=== PATIENT | female | born 1955 | race Caucasian/White ===

== ENCOUNTER 2019-10-02 10:09 | Observation (INO) | payer MEDICARE, SELFPAY ==
[2019-10-02] VITALS (16 sets, daily range): BP systolic 103–142; BP diastolic 52–104; PULSE 71–82; RESP 16–24; TEMP 36.6–36.8; O2SAT 92–100; BMI 24.0
--- NOTE | ~2019-10-02 | US_ITS ---
EXAMINATION: US thoracentesis DATE: 10/03/2019 11:58 INDICATION: Left pleural effusion TECHNIQUE: The procedure and its risks and benefits were discussed with the patient. Potential risks discussed included bleeding, infection, and pneumothorax. The patient understood the risks and agreed to proceed. The skin was prepped and draped in sterile fashion. 1% lidocaine was used for local anes thesia. Under ultrasound guidance, a 5 Fr catheter with trochar was advanced into the moderate-sized left pleural effusion. Fluid was aspirated. The catheter was removed, and a dressing was applied. The re were no immediate complications. FINDINGS: Ultrasound images demonstrate a moderate-sized left pleural effusion and the catheter within the flui d. IMPRESSION: 1. Successful ultrasound-guided thoracentesis yielding 525 mL of cloudy yellowish fluid. Reviewed, dictated and finalized at location A. BURNER INSTALLER IMPRESSION: 1. Successful ultrasound-guided thoracentesis yielding 525 mL of cloudy yellow becky fluid.
--- NOTE | ~2019-10-02 | CT_ITS ---
EXAMINATION: CT chest w con EXAM DATE: 10/02/2019 13:20 INDICATION: Infiltrate. Shortness of breath. TECHNIQUE: Spiral CT of the chest following intravenous injection of 75 mL Omnipaque 350. Axial, cor onal and sagittal images were reviewed. Coronal maximum intensity pixel images of chest reviewed. Maura ashford dose-length product (DLP) for this examination was 166.38 mGy-cm. The exposure was tailored accor ding to patient size (auto mA exposure control), and iterative reconstruction (ASIR) was used as lady tional dose reduction technique. There is no prior study for comparison. Correlation was made with . FINDINGS: There is spiculated centrally hypodense left apical mass measuring 1.9 x 1.5 cm, most like ly necrotic primary lung cancer. There is left infrahilar lymphadenopathy and soft tissue insinuating into the hilum, and with left lower lobe airspace disease which has hypodense regions, likely necrot ic malignancy and postobstructive atelectasis. There is moderate-sized left pleural effusion with mi ld diffuse pleural thickening, mostly subpulmonic but also extending more cephalad, evidence of locul ations. This could be malignant pleural effusion. Approximately 1 cm nonspecific right upper lobe opacity could be scarring. Tracheobronchial tree is patent. There is no mediastinal, hilar or axillary lymphadenopathy. There is no pneumothorax. H eart normal in size. There is moderate coronary arterial calcification, arterial sclerosis. Upper abdomen is unremarkable. There is sclerotic focus in the right glenoid measuring 7 mm, could be bon e island. There is mild to moderate thoracic spondylosis. There are cholecystectomy clips. IMPRESSION: 1. Right upper lobe spiculated nodule likely primary lung cancer. 2. Infiltrative left infrahilar lymphadenopathy, left lower lobe atelectasis and necrosis, could be necrotic cancer. 3. Moderate left-sided predominant subpulmonic pleural effusion probably malignant. 4. Right glenoid sclerotic focus, most likely bone island. Attention on follow-up. 5. No central pulmonary emboli. Reviewed, dictated and finalized at location B. R CONTROL SUPERVISOR IMPRESSION: 1. Right upper lobe spiculated nodule likely primary lung cancer. 2. Infiltrative left infrahilar lymphadenopathy, left lower lobe atelectasis a nd necrosis, could be necrotic cancer. 3. Moderate left-sided predominant subpulmonic pleural effusion probably malig nant. 4. Right glenoid sclerotic focus, most likely bone island. Attention on follow -up. 5. No central pulmonary emboli.
--- NOTE | ~2019-10-02 | XR_ITS ---
EXAMINATION: XR chest 1V DATE: 10/03/2019 11:52 INDICATION: Left subpulmonic pleural effusion postthoracentesis TECHNIQUE: frontal view of the chest was obtained. COMPARISON: Chest radiograph dated 10/02/2019 FINDINGS: Decrease in size of a still small to moderate sized left pleural effusion postthoracentesis. Mild imp roved aeration in the left mid and lower lung zones with persistent airspace opacities which could re present atelectasis and/or pneumonia. Nodular opacity projecting over the anterior left first rib whi ch remain suspicious for primary bronchogenic carcinoma. Right lung remains clear. No pneumothorax or right-sided pleural effusion. Heart size is normal. Mild thoracic dextrocurvature. Cholecystectomy c lips in the right upper quadrant. IMPRESSION: 1. Decrease in size of a small to moderate left pleural effusion postthoracentesis. No pneumothorax. 2. Opacities in the left mid and lower lung zone consistent with atelectasis and/or pneumonia. 3. Left upper lobe nodule suspicious for primary bronchogenic lung cancer. Reviewed, dictated and finalized at location A. AL CARE SUPERVISOR IMPRESSION: 1. Decrease in size of a small to moderate left pleural effusion postthoracente sis. No pneumothorax. 2. Opacities in the left mid and lower lung zone consistent with atelectasis an d/or pneumonia. 3. Left upper lobe nodule suspicious for primary bronchogenic lung cancer.
--- NOTE | ~2019-10-02 | XR_ITS ---
EXAMINATION: XR chest 2V EXAM DATE: 10/02/2019 11:38 INDICATION: Shortness of breath, shoulder pain. TECHNIQUE: Frontal and lateral projections of the chest obtained and reviewed. There is no prior marla dy for comparison. FINDINGS: There is a moderate to large left-sided pleural effusion tracking along the posterior later al aspect of the pleural cavity, indicating that there could be loculations within this. There is adj acent atelectasis. Can't exclude underlying cancer or pneumonia. Right lung is clear. Cardiomediastin al silhouette is normal. There is no pneumothorax suspected. There are cholecystectomy clips. There a re mild bony degenerative changes. IMPRESSION: Moderate to large left pleural effusion probably with loculations. Adjacent atelectasis. Can't exclude superimposed left basilar cancer or pneumonia. Clinical correlation, consider CT chest with contrast. Reviewed, dictated and finalized at location B. ING AND FOLDING MACHINE OPERATOR IMPRESSION: Moderate to large left pleural effusion probably with loculations. Adjacent atelectasis. Can't exclude superimposed left basilar cancer or pneumon ia. Clinical correlation, consider CT chest with contrast.
--- NOTE | ~2019-10-02 | CT_ITS ---
EXAMINATION: CT brain wo con DATE: 10/03/2019 11:07 INDICATION: Confusion. Abnormal balance. TECHNIQUE: Computed tomography (CT) of the head was performed without intravenous contrast. The mA wa s adjusted according to patient size. Iterative reconstruction technique was employed. The dose-lengt h product was 529.67 mGy-cm. COMPARISON: None FINDINGS: There is no intracranial hemorrhage, acute infarction, or abnormal intracranial mass lesion . There are scattered areas of low attenuation in the cerebral white matter, which is within normal l imits for the patient's age. The ventricles are normal in size. The paranasal sinuses are clear. The mastoid air cells are normal. The orbits are normal. IMPRESSION: 1. Normal aging brain. Reviewed, dictated and finalized at location A. RNATIONAL TRADE MANAGER IMPRESSION: 1. Normal aging brain.
--- NOTE | 2019-10-02 10:18 | ECG_ITS ---
Measurements Intervals [place] Rate: 78 P: 61 AR: 139 QRS: 5 QRSD: 81 T: 30 QT: 332 QTc: 378 Interpretive Statements SINUS RHYTHM BASELINE WANDER- V4, V6 NORMAL ECG Electronically Signed On 10-02-2019 12:56:06 DISHCLOTH FOLDER by Benjy Peters D.O.
--- NOTE | 2019-10-02 10:21 | ED.URI ---
HPI - URI/Sore Throat General Chief Complaint: Upper Respiratory Infection Stated Complaint: SOB, cold sx Time Seen by Provider: 10/02/19 10:16 Source: patient and RN notes reviewed Mode of arrival: ambulatory Limitations: no limitations History of Present Illness HPI Narrative: Pt is a 64 y/o female who presents to the ED with c/o non-productive cough and SOB starting roughly 2 weeks ago. She notes that she hasn't been physically evaluated by anyone for her symptoms, but states that she called her PCP due to her symptoms, and was prescribed a course of Amoxicillin. Pt notes that she has already finished the course of antibiotics. She also reports lt sided chest pain radiating into her lt shoulder and a low-grade fever. Pt states that she has quit smoking for the past several weeks. MD elicited complaint: cough and other (SOB) Onset (ago): week(s) (2) Associated symptoms: fever (low-grade) and chest pain (lt sided chest pain radiating into lt shoulder) Related Data Home Medications Medication Instructions Recorded Confirmed digoxin 125 mcg (0.125 mg) tablet 125 mcg PO DAILY 07/12/19 diltiazem HCl 60 mg tablet 60 mg PO TID 07/12/19 lisinopril 40 mg tablet 40 mg PO DAILY 07/12/19 magnesium oxide 400 mg PO BID 07/12/19 metoprolol tartrate 25 mg tablet 25 mg PO BID tablet 07/12/19 rivaroxaban 20 mg tablet 20 mg PO QPM tablet 07/12/19 simvastatin 20 mg tablet 20 mg PO DAILY 07/12/19 Allergies Allergy/AdvReac Type Severity Reaction Status Date / Time No Known Allergies Allergy Verified 08/10/19 13:02 Review of Systems Review of Systems: All systems reviewed & are unremarkable except as noted in HPI and below Constitutional: Constitutional: Reports fever(s) (low-grade) Cardiovascular: Cardiovascular: Reports chest pain (lt sided chest pain radiating into lt shoulder) Respiratory: Respiratory: Reports cough and Reports dyspnea PMFSH Past Medical History Medical History Arthritis Atrial fibrillation Cataracts, bilateral Cholelithiasis Depression Endometriosis Essential hypertension History of rectal polyps Hyperlipidemia Inguinal hernia Uterine fibroid Surgical History Surgical History History of bladder suspension procedure History of colon resection Hx of section x3 Hx of hysterectomy Hx of inguinal hernia repair Family History Family History (Updated 04/25/19 @ 10:56 by DOCTOR UNKNOWN) Father Family history of hypercholesterolemia Hypertension Cerebrovascular accident, Onset Age: 86 Sibling Family history of malignant neoplasm of breast in first degree relative Other Family history of cardiovascular disease Family history of malignant neoplasm Social History Social History Smoking packs per day: 1 Smoking cigarettes per day: 20.0 Smoking status: Current every day smoker Alcohol intake: never Substance use: never Substance use type: does not use Gender identity (if verbalized by the patient): Female Comments PCP is Dr. Pina. Exam Narrative: Exam Narrative: APPEARANCE: No acute distress, nontoxic, resting in bed HEENT: Normocephalic, atraumatic OMM RESPIRATORY: No respiratory distress, wheezing throughout the bilateral lung carlos, no rhonchi rales CARDIOVASCULAR: Regular rate and rhythm without murmurs rubs or gallops. ABDOMINAL: Soft, nontender, nondistended, no rebound or guarding MUSCULOSKELETAl: Moves all extremities. No clubbing, cyanosis or edema. Bilateral calves soft and nontender NEURO: Awake and alert. Following commands, speech normal, no focal deficits SKIN:: Warm, dry. Normal Color PSYCHIATRIC: Normal affect/mood, Course Course Emergency Course: Discussed with patient and family results of workup and diagnosis. Discussed need for admission. Patient and family understand and agree
[2019-10-02 10:34] LABS: Basophils Absolute Auto 0.1 K/mm3 (0.0-0.1); Basophils Percent Auto 0.6 % (0.2-1.2); Eosinophils Absolute Auto 0.1 K/mm3 (0-0.3); Eosinophils Percent Auto 0.5 % (0-4.4); Hemoglobin 10.2 g/dL (12.0-15.0); Immature Granulocyte Absolute 0.14 K/mm3 (0.00-0.031); Lymphocytes Absolute Auto 0.67 K/mm3 (0.9-3.2); Lymphocytes Percent Auto 4.7 % (18.3-44.2); Mean Corpuscular HGB Conc 29.1 g/dl (32-36); Mean Corpuscular Hemoglobin 24.2 pg (26-34); Mean Corpuscular Volume 82.9 fl (80-100); Monocytes Percent Auto 7.2 % (2.6-8.5); Neutrophils Absolute Auto 12.3 K/mm3 (1.3-6.7); Platelet Count Result 520 k/mm3 (150-375); Red Blood Count 4.22 M/mm3 (4.2-5.4); Red Cell Distribution Width 15.6 % (11.5-14.5); White Blood Count 14.3 K/mm3 (4.5-10.0)
[2019-10-02] MEDS: IPRATROPIUM BR 0.02% INH SOLN 0.5 MG/2.5 ML VIAL INHALATION ×3 (10:43→19:54)
[2019-10-02] MEDS: ALBUTEROL SULFATE NEB 2.5 MG/0.5 ML INH 5 MG INHALATION ×3 (10:43→19:54)
[2019-10-02 10:47] LABS: Blood Urea Nitrogen 24 mg/dL (7-17); Calcium 8.8 mg/dL (8.4-10.2); Carbon Dioxide 29 mmol/L (22-30); Chloride 93 mmol/L (98-107); Estimated CRCL calculation 48 ml/min; Estimated Glomerular Filt Rate > 60; Glucose 88 mg/dL (65-105); Sodium 133 mmol/L (137-145)
[2019-10-02 11:02] LABS: Troponin I < 0.012 ng/mL (0.000-0.034)
--- NOTE | 2019-10-02 13:34 | PC.NURSE ---
Pt and family informed that ERP is waiting on CT results before he decides on plan of care. ERP informed that pt family has to leave ED at 1400 to get her kids and is pt's primary ride.
--- NOTE | 2019-10-02 13:44 | PC.NURSE ---
ERP informed that pt scan has been read.
[2019-10-02 14:50] LABS: Lactic Acid Reflex 0.7 mmol/L (0.7-2.1)
--- NOTE | 2019-10-02 15:09 | ADMGEN ---
This patient, Emmy Sanchez, was admitted to Medical Room 246-01. Patient/family oriented to hospital policies and general routines including ID bracelet, bed and alarms, visiting hours, pain management, procedures, bathroom and other care routines, personal items, smoking policy, room service/diet, and visiting hours. Valuables list has been completed. Information on how to activate the Rapid Response Team has been discussed. Patient/Family are encouraged to report perceived risks to care and to ask questions if they do not understand what they are told or what they should do.
--- NOTE | 2019-10-02 17:00 | PM.IMHP ---
H&P: HPI History of Present Illness Chief complaint: Shortness of breath and cough. Narrative: Emmy Sanchez is a 64 year old female smoker with hypertension, hyperlipidemia, and atrial fibrillation on Xarelto who presented to the emergency department earlier this morning from home for evaluation of shortness of breath and cough. She developed a cough on September 19 and reports a severe, pleuritic like pain in the left lower back and flank region at the same time. The pain is aggravated with coughing, deep inspiration, and occasionally movement. It will radiate somewhat to the left scapula. She gives no significant alleviating factors. The patient assumed to that she was getting a cold as she then began coughing up clear phlegm and was experiencing mild sinus congestion and aural fullness. She has also had sweats, chills, and subjective fever. Not long thereafter she began feeling a bit short of breath, and started taking Coricidin which helped somewhat. Unfortunately, the cough continued and she spoke with her primary care provider's office over the phone and was prescribed amoxicillin. She completed the full course of the antibiotic but has not felt much better. She came in today because her symptoms have not resolved. Chest x-ray showed a moderate to large left pleural effusion with possible loculations. A subsequent chest CT revealed a spiculated left upper lobe nodule, infiltrative left infrahilar lymphadenopathy, left lower lobe atelectasis and necrosis as well as a moderate left-sided predominant sub pulmonic pleural effusion, suspected to be malignant. She has a long history of smoking, upwards of 1.5 to 2 packs of cigarettes per day. She tells me she stopped smoking about 2 weeks ago when she began feeling ill. In fact she was started on Wellbutrin for depression late last year, and she believes this has helped her stop smoking. She also reports at least a 100 pound weight loss in the past 1 year, which she initially attributed to gallbladder disease. She is status post cholecystectomy in May 2019, but she continues to lose weight. She says her appetite is just ?hit and miss.? No history of malignancy. She is unaware of any lymphadenopathy. No exertional chest pain. She has not had a documented fever. No nausea or vomiting. Review of Systems Review of Systems: Narrative: Twelve systems were reviewed with pertinent positives and negatives as per HPI. She does have some hearing loss, but does not use hearing aids. No exertional chest pain. She has had exertional shortness of breath, however. No orthopnea or PND. No lower extremity edema. No history of venous thromboembolism. Shortly after her cholecystectomy she suffered from diarrhea, but that has since improved. Except as documented, all other systems were reviewed and are negative. [facility] Past Medical History Medical History (Updated 10/02/19 @ 16:08 by Loretta Capps PA-C) Atrial fibrillation Anticoagulated with Xarelto. Depression with anxiety Essential hypertension History of rectal polyps Hyperlipidemia Osteoarthritis Tobacco dependence Surgical History Surgical History (Updated 10/02/19 @ 16:06 by Loretta Capps PA-C) History of bladder suspension procedure History of colon resection Hx of section x3 Hx of hysterectomy For uterine fibroids and endometriosis. Hx of inguinal hernia repair Status post laparoscopic cholecystectomy Family History Family History Father Family history of hypercholesterolemia Hypertension Cerebrovascular accident, Onset Age: 86 Family history of cardiovascular disease Family history of malignant neoplasm Sibling Heart attack Mother Smoker Heart attack Emphysema lung COPD (chronic obstructive pulmonary disease) Lung cancer Sibling Lung cancer Sibling Family history of malignant neoplasm of breast in first degree
--- NOTE | 2019-10-02 18:04 | PC.NURSE ---
On 10/02/19, the graduate nurse, Kapil Weaver RN, provided care and completed [facility] documentation on this patient. I have reviewed the student's documentation and agree with the findings.
[2019-10-02 18:30] LABS: Digoxin 0.7 ng/mL (0.8-2.0)
[2019-10-02] MEDS: ACETAMINOPHEN 325 MG TABLET 650 MG PO (20:04)
[2019-10-02] MEDS: ALPRAZOLAM 0.25 MG TABLET PO (21:27)
[2019-10-02] MEDS: METOPROLOL TARTRATE 25 MG TABLET PO (21:37)
[2019-10-02] MEDS: DILTIAZEM HCL 60 MG TABLET PO (21:38)
[2019-10-03] VITALS (11 sets, daily range): BP systolic 100–147; BP diastolic 60–70; PULSE 70–89; RESP 16–22; TEMP 36.7; O2SAT 92–96
[2019-10-03] MEDS: DILTIAZEM HCL 60 MG TABLET PO (06:08)
[2019-10-03 06:09] LABS: Basophils Absolute Auto 0.1 K/mm3 (0.0-0.1); Basophils Percent Auto 0.6 % (0.2-1.2); Eosinophils Absolute Auto 0.1 K/mm3 (0-0.3); Eosinophils Percent Auto 1.1 % (0-4.4); Hematocrit 31.5 % (37.0-47.0); Hemoglobin 9.4 g/dL (12.0-15.0); Immature Granulocyte Absolute 0.12 K/mm3 (0.00-0.031); Immature Granulocyte Percent A 1.3 % (0-0.5); Lymphocytes Percent Auto 8.5 % (18.3-44.2); Mean Corpuscular HGB Conc 29.8 g/dl (32-36); Mean Corpuscular Hemoglobin 23.9 pg (26-34); Mean Corpuscular Volume 80.2 fl (80-100); Mean Platelet Volume 8.5 fl (7.4-10.4); Monocytes Absolute Auto 0.6 K/mm3 (0.1-0.6); Monocytes Percent Auto 6.8 % (2.6-8.5); Neutrophils Absolute Auto 7.7 K/mm3 (1.3-6.7); Neutrophils Percent Auto 81.7 % (45.5-73.1); Platelet Count Result 500 k/mm3 (150-375); Red Blood Count 3.93 M/mm3 (4.2-5.4); Red Cell Distribution Width 15.4 % (11.5-14.5); White Blood Count 9.4 K/mm3 (4.5-10.0)
[2019-10-03 06:42] LABS: Alanine Aminotransferase 21 U/L (4-35); Albumin Level 3.1 g/dL (3.5-5.1); Alkaline Phosphatase 243 U/L (38-126); Aspartate Amino Transferase 34 U/L (14-36); Bilirubin,Total 0.4 mg/dL (0.2-1.3); Blood Urea Nitrogen 16 mg/dL (7-17); Calcium 9.2 mg/dL (8.4-10.2); Carbon Dioxide 32 mmol/L (22-30); Chloride 94 mmol/L (98-107); Estimated CRCL calculation 48 ml/min; Estimated Glomerular Filt Rate > 60; Glucose 86 mg/dL (65-105); Potassium 4.6 mmol/L (3.4-5.0); Sodium 136 mmol/L (137-145)
[2019-10-03 06:48] LABS: Mean Platelet Volume 8.3 fl (7.4-10.4); Platelet Count Result 447 k/mm3 (150-375)
[2019-10-03 07:01] LABS: INR 1.1
[2019-10-03 07:02] LABS: Partial Thromboplastin Time 35.4 SECONDS (22.3-36.8)
[2019-10-03] MEDS: ACETAMINOPHEN 325 MG TABLET 650 MG PO (08:23)
[2019-10-03] MEDS: ALBUTEROL SULFATE NEB 2.5 MG/0.5 ML INH 5 MG INHALATION ×2 (08:59→15:05)
[2019-10-03] MEDS: IPRATROPIUM BR 0.02% INH SOLN 0.5 MG/2.5 ML VIAL INHALATION ×2 (08:59→15:05)
--- NOTE | 2019-10-03 11:04 | PC.NURSE ---
To Radiology per stretcher for ultrasound guided paracentesis and CT.
--- NOTE | 2019-10-03 11:06 | PC.NURSE ---
Patient receiving AM meds late due to being NPO for procedures this morning.
--- NOTE | 2019-10-03 11:22 | PCRCNOTE ---
10/03 199 treatment: Window of time for administration has passed. See next scheduled administration.
[2019-10-03 11:53] LABS: pH Pleural Fluid 6.832 (7.210-7.500)
--- NOTE | 2019-10-03 12:06 | PC.NURSE ---
Patient returned from Radiology by stretcher.
[2019-10-03] MEDS: buPROPion HCL XL (24 HR) 150 MG TABCR PO (12:11)
[2019-10-03] MEDS: DIGOXIN TAB 125 MCG TABLET PO (12:11)
[2019-10-03] MEDS: METOPROLOL TARTRATE 25 MG TABLET PO (12:13)
[2019-10-03] MEDS: MAGNESIUM OXIDE 400 MG TABLET PO ×2 (12:13→17:09)
[2019-10-03] MEDS: lisinopriL 20 MG TABLET 40 MG PO (12:13)
[2019-10-03] MEDS: SERTRALINE HCL 50 MG TABLET 100 MG PO (12:14)
[2019-10-03] MEDS: SIMVASTATIN 20 MG TABLET PO (12:14)
[2019-10-03 12:21] LABS: Appearance Pleural Fluid Cloudy (Clear); Color Pleural Fluid Brown (Colorless); Nucleated Cell Pleural Fluid 7588 /uL (0-1000); Pleural fluid source Pleural fluid; RBC Pleural Fluid 1391 /uL (0-0)
[2019-10-03 13:00] LABS: Lymphocytes Pleural Fluid 3 %; Monocytes Pleural Fluid 1 %; Neutrophils Pleural Fluid 96 % (0-25)
--- NOTE | 2019-10-03 14:13 | PM.TDS ---
Transfer Discharge Sum: Prov Provider Date of admission: 10/02/19 14:24 Transfer Date: 10/03/2019 at roughly 19:00 Primary care physician: Jr Pina MD Admitting clinician: Ann Marie [place] MD Consults: 10/02/19 14:25 Consult to Physician Routine Comment: Consulting Provider: Alisha Ritchie Reason for consultation: lung mass Has provider been notified: Yes DS: Diagnosis Admitting Diagnosis Admitting Diagnosis: Other nonspecific abnormal finding of lung field Discharge Diagnosis (1) Pleural effusion: Code(s): J90 - Pleural effusion, not elsewhere classified Status: Acute Assessment and Plan: Moderate left-sided sub pulmonic pleural effusion, malignant vs empyema with recent pleuritc fluid findings. Discussed with Dr. Ritchie and CP Dr. Lind; recommend transfer to [facility] hospital with CT surgery. Hold Xarelto for now as patient may have procedure at tertiary care Discussed with Dr. Lind and recommended adding on Flagyl 500 mg Q8 hours in addition to current regimen of Doxycycline and Rocephin. CT surgeon is Dr. Cueto at [facility] in [place] who graciously accepted patient as a consult. Discussed with Hospitalist PHOTO GRAPHICS LIBRARIAN Lee Ann Garcia who also graciously accepts patient. (2) Lung mass: Code(s): R91.8 - Other nonspecific abnormal finding of lung field Status: Acute Assessment and Plan: Left upper lobe spiculated nodule noted on CT yesterday. Also with infiltrative left infrahilar lymphadenopathy and left lower lobe necrosis, possibly necrotic cancer. Patient had thoracentesis today which showed pH of 6.832 with 7588 nucleated cells, and 96% pleural neutrophils; findings suggestive of possible empyema Discussed results with Dr. Ritchie and Dr. [place] and recommended transfer to [facility] hospital for further management of possible empyema Further work-up for lung mass may need to be held at the moment until further treatment of possible empyema (3) Atrial fibrillation: Code(s): I48.91 - Unspecified atrial fibrillation Status: Acute Assessment and Plan: Currently in a sinus rhythm. Continue metoprolol. Xarelto on hold in anticipation of possible CT surgery/procedure (4) Tobacco dependence: Code(s): F17.200 - Nicotine dependence, unspecified, uncomplicated Status: Acute Assessment and Plan: Heavy smoker for many years, reportedly quit smoking several weeks ago. Smoking cessation was encouraged Transfer Discharge Sum: Med Medications Active and Home Medications: Home Medications digoxin 125 mcg (0.125 mg) tablet 125 mcg PO DAILY 07/12/19 [History Confirmed 10/02/19] diltiazem HCl 60 mg tablet 60 mg PO TID 07/12/19 [History Confirmed 10/02/19] lisinopril 40 mg tablet 40 mg PO DAILY 07/12/19 [History Confirmed 10/02/19] magnesium oxide 400 mg PO BID 07/12/19 [History Confirmed 10/02/19] metoprolol tartrate 25 mg tablet 25 mg PO BID tablet 07/12/19 [History Confirmed 10/02/19] rivaroxaban 20 mg tablet 20 mg PO QPM tablet 07/12/19 [History Confirmed 10/02/19] simvastatin 20 mg tablet 20 mg PO DAILY 07/12/19 [History Confirmed 10/02/19] alprazolam 0.25 mg tablet 0.25 mg PO TID PRN #60 tablet 08/10/19 [Rx Confirmed 10/02/19] bupropion HCl 150 mg 24 hr tablet, extended release 150 mg PO QAM #90 tablet 09/11/19 [Rx Confirmed 10/02/19] hydrochlorothiazide 25 mg tablet 25 mg PO DAILY #90 tablet 09/11/19 [Rx Confirmed 10/02/19] sertraline 100 mg tablet 100 mg PO DAILY #90 tablet 09/18/19 [Rx Confirmed 10/02/19] acetaminophen 1,000 mg PO Q12H PRN 10/02/19 [History Confirmed 10/02/19] Active Medications Acetaminophen (Tylenol Tablet) 650 mg PO Q6H PRN PRN Reason: Mild Pain (1-3) or Fever Last Admin: 10/03/19 08:23 Dose: 650 mg Documented by: Albuterol (Albuterol Sulf Neb 2.5mg/0.5ml)
--- NOTE | 2019-10-03 14:31 | PCDIET ---
Seeing pt 2/2 to MST score of 4 for 100lb + weight loss since fall. Appears pt will be transferring out. Enlive added once daily and pt encouraged to continue intake of ONS at home after d/c along with three balanced meals and snacks when appropriate. Pt has been eating less and was not absorbing foods after cholecystectomy in May 2019 and attributed wt loss to this. Pt feels she is currently steady with her wt at this time. If pt remains, we will continue to monitor PO intake and wt every three days.
[2019-10-03] MEDS: metroNIDAZOLE 500 MG/ISO 100ML 500 MG/100 ML BAG 100 MG IVPB (14:56)
--- NOTE | 2019-10-03 15:57 | PM.IMPN ---
Subjective Date/time seen: 10/03/19 15:57 Objective Data Vital Signs Vital Signs: Vital Signs - 24 hr 10/02/19 19:30 10/02/19 19:40 10/02/19 21:37 Temperature 98 F Pulse Rate 76 77 81 Respiratory Rate 20 20 20 Blood Pressure 132/62 Pulse Oximetry 99 10/03/19 06:00 10/03/19 08:59 10/03/19 09:09 Temperature 98.1 F Pulse Rate 89 86 88 Respiratory Rate 20 16 16 Blood Pressure 147/70 H Pulse Oximetry 93 10/03/19 11:55 10/03/19 11:56 10/03/19 12:11 Temperature Pulse Rate 87 82 76 Respiratory Rate 20 22 H Blood Pressure 101/62 111/67 Pulse Oximetry 95 92 10/03/19 12:13 10/03/19 12:20 10/03/19 15:01 Temperature Pulse Rate 76 70 Respiratory Rate Blood Pressure 105/60 100/69 Pulse Oximetry 96 10/03/19 15:05 10/03/19 15:15 Temperature Pulse Rate 70 72 Respiratory Rate 18 18 Blood Pressure Pulse Oximetry Intake/Output Intake/Output: Intake & Output 09/30/19 10/01/19 10/02/19 10/03/19 23:59 23:59 23:59 23:59 Intake Total 890 550 Output Total 400 2325 Balance 490 -4768 Meds/Results Medications: Active Medications Generic Name Dose Route Start Last Admin Trade Name Freq PRN Reason Stop Dose Admin Acetaminophen 650 mg 10/02/19 18:32 10/03/19 08:23 Tylenol Tablet PO 650 mg Q6H PRN Administration Mild Pain (1-3) or Fever Albuterol 5 mg 10/02/19 14:00 10/03/19 15:05 Albuterol Sulf Neb 2.5mg/0.5ml INHALATION 5 mg Q6HRT NEEL Administration Alprazolam 0.25 mg 10/02/19 20:12 10/02/19 21:27 Xanax PO 0.25 mg TID PRN Administration anxiety Bupropion HCl 150 mg 10/03/19 09:00 10/03/19 12:11 Wellbutrin Xl (24 Hr) PO 150 mg QAM NEEL Administration Digoxin 125 mcg 10/03/19 09:00 10/03/19 12:11 Lanoxin Tab PO 125 mcg DAILY NEEL Administration Diltiazem HCl 60 mg 10/02/19 22:00 10/03/19 15:21 Cardizem Tab PO Not Given Q8HR NEEL Ceftriaxone Sodium/Dextrose 1 gm in 50 mls @ 100 mls/hr 10/03/19 13:00 10/03/19 12:45 Rocephin 1 Gm/D5w 50 Ml IVPB Infused Q24H NEEL Infusion Doxycycline Hyclate 100 mg/ 100 mls @ 100 mls/hr 10/02/19 21:00 10/03/19 09:15 Dextrose IVPB Infused Q12HR NEEL Infusion Metronidazole 500 mg in 100 mls @ 100 mls/hr 10/03/19 14:50 10/03/19 14:56 Flagyl 500 Mg/Iso Soln 100 Ml IVPB 100 mls/hr Q8HR NEEL Administration Ipratropium [place] 0.5 mg 10/02/19 14:00 10/03/19 15:05 Atrovent Neb INHALATION 0.5 mg Q6HRT NEEL Administration Lisinopril 40 mg 10/03/19 09:00 10/03/19 12:13 Prinivil PO 40 mg DAILY NEEL Administration Magnesium Oxide 400 mg 10/03/19 09:00 10/03/19 12:13 Mag-Ox PO 400 mg BID NEEL Administration Metoprolol Tartrate 25 mg 10/02/19 21:00 10/03/19 12:13 Lopressor PO 25 mg Q12HR NEEL Administration Sertraline HCl 100 mg 10/03/19 09:00 10/03/19 12:14 Zoloft PO 100 mg DAILY NEEL Administration Simvastatin 20 mg 10/03/19 09:00 10/03/19 12:14 Zocor PO 20 mg DAILY NEEL Administration Radiology Results: ITS Impressions Chest CT 10/02/19 13:32 IMPRESSION: 1. Right upper lobe spiculated nodule likely primary lung cancer. 2. Infiltrative left infrahilar lymphadenopathy, left lower lobe atelectasis and necrosis, could be necrotic cancer. 3. Moderate left-sided predominant subpulmonic pleural effusion probably malignant. 4. Right glenoid sclerotic focus, most likely bone island. Attention on follow-up. 5. No central pulmonary emboli. ADDENDUM: 10/03/19 0821 Correction to addendum impression 1 should read 1. LEFT upper lobe spiculated nodule likely primary lung cancer. Head CT 10/03/19 11:10 IMPRESSION: 1. Normal aging brain. Chest X-Ray 10/03/19 11:53 IMPRESSION: 1. Decrease in size of a small to moderate left pleural effusion postthoracentesis. No pneumothorax. 2. Opacities in the left mid and lower lung zone consistent with atelec
--- NOTE | 2019-10-03 17:28 | PC.NURSE ---
Gave report to CANDELARIA Acuña at [facility]. Phone number [phone]. Family at bedside and aware of patient transfer.
--- NOTE | 2019-10-03 18:33 | PC.NURSE ---
On 10/03/19, the karin Weaver RN, provided care and completed [facility] documentation on this patient. I have reviewed the student's documentation and agree with the findings.
[2019-10-05 13:38] LABS: Glucose Pleural Fluid <10 mg/dL; LDH Pleural Fluid 3733 U/L; Total Protein Pleural Fluid 4.7 g/dL
[2019-10-08 12:29] LABS: Amylase, Pleural Fluid 89 U/L
[2019-10-09 16:17] LABS: Albumin Pleural Fluid 1.6 g/dL
== END 2019-10-03 19:10 | disposition other institution (70) ==
LOC: ANHED 14:40 → ANH2MED 14:46
PROVIDERS: Physician Assistant; Admitting Provider Family Medicine; Emergency Provider Emergency Medicine; PCP Family Medicine; Visit Provider Family Medicine
DX: J90 Pleural effusion, not elsewhere classified (principal); R91.8 Other nonspecific abnormal finding of lung field; I48.91 Unspecified atrial fibrillation; F17.210 Nicotine dependence, cigarettes, uncomplicated; I10 Essential (primary) hypertension; E78.5 Hyperlipidemia, unspecified; F41.8 Other specified anxiety disorders; Z79.01 Long term (current) use of anticoagulants; Z79.899 Other long term (current) drug therapy
CPT/HCPCS: 32555; 36415; 70450; 71045; 71046; 71260; 80048; 80053; 80162; 82042; 82150; 82945; 83605; 83615; 83986; 84157; 84311; 84484; 85025; 85049; 85610; 85730; 87040; 87070; 87075; 87081; 87205; 87804; 88104; 88108; 88184; 88305; 89051; 93005; 94640; 96365; 96366; 96367; 96375; 99285; A9270; G0378; J0456; J0696; Q9967